=== PATIENT | male | born 1960 | race Caucasian/White ===

== ENCOUNTER 2016-06-26 16:03 | Emergency (ER) | payer OTHER ==
[2016-06-26 16:03] VITALS: BMI 29.2
[2016-06-26 16:20] VITALS: RESP 18
[2016-06-26] MEDS ORDERED: Sodium Chloride 0.9% 1,000 ML IV ONE (17:14)
--- NOTE | 2016-06-26 17:34 | RAD ---
PROCEDURE: CHEST RADIOGRAPH, 1 VIEW HISTORY: abd pain COMPARISON: Comparison chest dated 12/23/2015 FINDINGS: LUNGS: Suspect minor bibasilar atelectasis and or scarring. PLEURA: No pneumothorax or pleural fluid seen. Suspect minimal right apical pleural thickening. CARDIOVASCULAR: Normal. OSSEOUS STRUCTURES: No significant abnormalities. . VISUALIZED UPPER ABDOMEN: No gross free intraperitoneal air seen under the diaphragmatic surfaces. OTHER FINDINGS: None. IMPRESSION: No active disease.
--- NOTE | 2016-06-26 17:43 | C.PDOC ---
History Of Present Illness 55 y/o male presents to the ED complaining of epigastric abdominal pain x 4 days. He also reports some mild nausea and several episodes of non-bloody, non- bilious vomiting. Patient denies diarrhea, fever, changes in appetite, or recent travel. Chief Complaint (Nursing): Abdominal Pain History Per: Patient History/Exam Limitations: no limitations Onset/Duration Of Symptoms: Days (4), Persistent Current Symptoms Are (Timing): Still Present Location Of Pain/Discomfort: Epigastric Radiation Of Pain To:: None Associated Symptoms: Nausea, Vomiting Recent travel outside of the [place]: No Past Medical History Reviewed: Historical Data, Nursing Documentation, Vital Signs Vital Signs: Last Vital Signs Temp 98.3 F 06/26/16 16:16 Pulse 85 06/26/16 16:16 Resp 18 06/26/16 16:16 BP 157/90 H 06/26/16 16:16 Pulse Ox 98 06/26/16 18:21 - Medical History PMH: No Chronic Diseases Surgical History: No Surg Hx - [facility] Procedures DETOXIFICATION SERVICES FOR SUBSTANCE ABUSE TREATMENT (12/23/15) Family History: States: Unknown Family Hx - Social History Hx Tobacco Use: No Hx Alcohol Use: Yes Hx Substance Use: No - Immunization History Hx Tetanus Toxoid Vaccination: No Hx Influenza Vaccination: No Hx Pneumococcal Vaccination: No Review Of Systems Except As Marked, All Systems Reviewed And Found Negative. Constitutional: Negative for: Fever Gastrointestinal: Positive for: Nausea, Vomiting, Abdominal Pain. Negative for : Diarrhea Physical Exam - Physical Exam Appears: Non-toxic, No Acute Distress Skin: Normal Color, Warm, Dry Head: Atraumatic, Normacephalic Eye(s): bilateral: Normal Inspection, PERRL Oral Mucosa: Moist Neck: Normal ROM, Supple Chest: Symmetrical, No Tenderness Cardiovascular: Rhythm Regular Respiratory: Normal Breath Sounds, No Rales, No Rhonchi, No Wheezing Gastrointestinal/Abdominal: Soft, Tenderness (RUQ and epigastric), No Guarding, No Rebound Back: Normal Inspection, No CVA Tenderness Extremity: Normal ROM, No Swelling Neurological/Psych: Oriented x3, Normal Speech, Normal Cognition ED Course And Treatment - Laboratory Results Result Diagrams: 06/26/16 17:45 06/26/16 17:45 ECG: Interpreted By Me ECG Rhythm: Sinus Rhythm Interpretation Of ECG: normal axis, normal intervals Rate From EC (bpm) O2 Sat by Pulse Oximetry: 98 (ra) Pulse Ox Interpretation: Normal - Other Rad Chest X-Ray X-Ray: Viewed By Me, Read By Radiologist (Juan Harris MD) Interpretation: IMPRESSION: No active disease. Medical Decision Making Medical Decision Making: Plan: * Labs * CXR * Ultrasound * Pepcid IVP, Zofran IVP, IV Fluids Disposition - Disposition Referrals: [facility] [Outside] [facility] [Outside] Disposition: HOME/ ROUTINE Disposition Time: 19:00 Condition: IMPROVED Additional Instructions: Thank you for letting us take care of you today. Your provider was Dr. Shah. You were treated for gastritis. The emergency medical care you received today was directed at your acute symptoms. If you were prescribed any medication, please fill it and take as directed. It may take several days for your symptoms to resolve. Return to the Emergency Department if your symptoms worsen, do not improve, or if you have any other problems. Please contact your doctor or call one of the physicians/clinics you have been referred to that are listed on the Patient Visit Information form that is included in your discharge packet. Bring any paperwork you were given at discharge with you along with any medications you are taking to your follow up visit. Our treatment cannot replace ongoing medical care by a primary care provider (PCP) outside of the emergency department. Thank you for allowing the [facility] team to be part of your care today. Follow up with the clinic in 4-5 days for re-evaluation. Prescriptions: Ranitidine HCl [Zantac] 150 mg PO BID #20 tablet - Clinical Impression Clinical Impression: Gastritis - Scribe Statement The provider has reviewed the documentation as recorded by the Scribe (Raquel Bailey) Provider Attestation: All medical record entries made by the Scribe were at my direction and personally dictated by me. I have reviewed the chart and agree that the record accurately reflects my personal performance of the history, physical exam, medical decision making, and the department course for this patient. I have also personally directed, reviewed, and agree with the discharge instructions and disposition.
[2016-06-26] MEDS ORDERED: Sodium Chloride 0.9% 1,000 ML ONE (17:46)
[2016-06-26 17:50] LABS: BASO # 0.1 K/uL (0.0-0.2); BASO % 0.8 % (0.0-2.0); EOS # 0.1 K/uL (0.0-0.7); HEMATOCRIT 43.5 % (35.0-51.0); LYMPH # 1.4 K/uL (1.0-4.3); LYMPH % 19.7 % (20.0-40.0); MEAN CELL VOLUME 97.2 fL (80.0-94.0); MEAN CORPUSCULAR HEMOGLOBIN 33.1 pg (27.0-31.0); MONO # 0.7 K/uL (0.0-0.8); MONO % 9.6 % (0.0-10.0); RED CELL DISTRIBUTION WIDTH 12.5 % (11.5-14.5); WHITE BLOOD COUNT 7.1 K/uL (4.8-10.8)
[2016-06-26 18:14] LABS: CHLORIDE 100 mmol/L (98-107); SODIUM 140 mmol/L (132-148)
[2016-06-26 18:15] LABS: POTASSIUM 3.9 mmol/L (3.6-5.2)
[2016-06-26 18:16] LABS: GFR AFRICAN-AMERICAN > 60
[2016-06-26 18:17] LABS: ALB/GLOB RATIO 1.4 (1.0-2.1); ALKALINE PHOSPHATASE 57 U/L (38-126); ALT/SGPT 26 U/L (21-72); AST/SGOT 44 U/L (17-59); BILIRUBIN,TOTAL 0.9 mg/dL (0.2-1.3); BLOOD UREA NITROGEN 20 mg/dL (9-20); CALCIUM 8.9 mg/dl (8.6-10.4); CARBON DIOXIDE 24 mmol/L (22-30); GLUCOSE,RANDOM 89 mg/dL (75-110); TOTAL PROTEIN 7.5 g/dL (6.3-8.3)
--- NOTE | 2016-06-26 18:54 | US ---
HISTORY: RUQ/epigastric pain/tenderness COMPARISON: None. TECHNIQUE: Sonographic evaluation of the abdomen. FINDINGS: LIVER: Measures 18.5 cm. Diffusely increased echogenicity of the liver parenchyma. Consistent with fatty infiltration. Smooth contour. No mass. No biliary ductal dilatation. GALLBLADDER: Unremarkable. No gallstones. COMMON BILE DUCT: Measures 3 mm. No stones. No dilatation. PANCREAS: Unremarkable as visualized. No mass. No ductal dilatation. RIGHT KIDNEY: Measures 11.8cm. Normal echogenicity. No calculus, mass, or hydronephrosis. LEFT KIDNEY: Measures 12.5cm. Normal echogenicity. No calculus, mass, or hydronephrosis. SPLEEN: Normal in size and contour. No mass. AORTA: No aneurysmal dilatation. IVC: Unremarkable. OTHER FINDINGS: None. IMPRESSION: Mild hepatomegaly with diffuse fatty infiltration. No evidence of cholelithiasis or cholecystitis.
[2016-06-26 19:30] VITALS: BP 148/81; PULSE 73; TEMP 97.8; O2SAT 99
--- NOTE | 2016-07-11 14:41 | CARD ---
APPROVED REPORT EKG Measurement Heart [id number] <Conclusion> Normal sinus rhythm Minimal voltage criteria for LVH, may be normal variant Inferior infarct, age undetermined Abnormal ECG
== END 2016-06-26 19:28 | disposition home or self-care (01) ==
LOC: C.ER 16:03
DX: K29.70 Gastritis, unspecified, without bleeding (principal)
CPT/HCPCS: 71010; 76700; 80053; 83690; 84484; 85025; 96361; 96374; 96375; 99284; J2405; J7040

== ENCOUNTER 2017-05-13 12:58 | Emergency (ER) | payer OTHER ==
[2017-05-13 13:00] VITALS: BMI 29.2
--- NOTE | 2017-05-13 14:28 | C.PDOC ---
History Of Present Illness 56 year old male presents to the ER with a complaint of a sharp right sided pain after lifting a heavy object at work yesterday. Denies nausea, vomiting, or diarrhea. Time Seen by Provider: 05/13/17 13:48 Chief Complaint (Nursing): Abdominal Pain History Per: Patient History/Exam Limitations: no limitations Onset/Duration Of Symptoms: Days Current Symptoms Are (Timing): Still Present Context: Other (Heavy lifting) Location Of Pain/Discomfort: Other (Right sided) Radiation Of Pain To:: None Quality Of Discomfort: Sharp Associated Symptoms: denies: Fever, Chills, Nausea, Vomiting, Diarrhea Alleviating Factors: None Recent travel outside of the [place]: No Past Medical History Reviewed: Historical Data, Nursing Documentation, Vital Signs Vital Signs: Last Vital Signs Temp 97.7 F 05/13/17 13:23 Pulse 82 05/13/17 13:23 Resp 18 05/13/17 13:23 BP 166/90 H 05/13/17 13:23 Pulse Ox 98 05/13/17 14:30 - [facility] Procedures DETOXIFICATION SERVICES FOR SUBSTANCE ABUSE TREATMENT (12/23/15) Family History: States: Unknown Family Hx - Social History Hx Tobacco Use: No Hx Alcohol Use: Yes Hx Substance Use: No - Immunization History Hx Tetanus Toxoid Vaccination: No Hx Influenza Vaccination: No Hx Pneumococcal Vaccination: No Review Of Systems Except As Marked, All Systems Reviewed And Found Negative. Constitutional: Negative for: Fever, Chills Gastrointestinal: Positive for: Other (Right sided). Negative for: Nausea, Vomiting Physical Exam - Physical Exam Additional Physical Exam Comments: Constitutional: No acute distress. Head: Normocephalic. Atraumatic. Eyes: PERRL. ENT: Moist mucous membranes. Neck: Supple. Cardiovascular: Regular rate. Radial pulse 2+ bilaterally. Chest: Right lower thoracic tenderness. Respiratory: Clear to auscultation bilaterally. GI: RUQ tenderness. Back: No CVA tenderness. Musculoskeletal: No tenderness or swelling of extremities. Skin: No rash. Neurologic: Alert, no focal deficit. ED Course And Treatment O2 Sat by Pulse Oximetry: 98 (Room air) Pulse Ox Interpretation: Normal Medical Decision Making Medical Decision Making: Toradol for pain. CXR no acute disease. I informed patient that his symptoms are consistent with strain from lifting heavy object but also overlying area of gall bladder so should he have fever, vomiting, yellowing of skin or eyes, or any other concern, to return to ED for imaging. Disposition - Disposition Disposition: HOME/ ROUTINE Disposition Time: 15:55 Condition: STABLE Prescriptions: Famotidine [Pepcid] 1 tab PO BID #14 tab Ibuprofen [Motrin] 600 mg PO Q6 #25 tab Instructions: Muscle Strain Forms: [employer] (Khmer) - Clinical Impression Clinical Impression: Strain of thoracic region - Scribe Statement The provider has reviewed the documentation as recorded by the Scribmile Kline All medical record entries made by the Davyibmile were at my direction and personally dictated by me. I have reviewed the chart and agree that the record accurately reflects my personal performance of the history, physical exam, medical decision making, and the department course for this patient. I have also personally directed, reviewed, and agree with the discharge instructions and disposition.
--- NOTE | 2017-05-13 15:38 | RAD ---
HISTORY: R sided thoracic pain COMPARISON: Chest x-ray performed 06/26/16 TECHNIQUE: Chest PA and lateral FINDINGS: Examination limited by habitus. LUNGS: No focal consolidation. Please note that chest x-ray has limited sensitivity for the detection of pulmonary masses. PLEURA: No significant pleural effusion identified. No definite pneumothorax . CARDIOVASCULAR: The cardiomediastinal silhouette appears within normal limits of size. OSSEOUS STRUCTURES: No acute osseous abnormality identified. VISUALIZED UPPER ABDOMEN: Unremarkable. OTHER FINDINGS: None. IMPRESSION: No focal consolidation, significant pleural effusion, or definite pneumothorax identified.
[2017-05-13 16:11] VITALS: BP 153/80; PULSE 73; RESP 20; TEMP 97.8; O2SAT 100
== END 2017-05-13 16:11 | disposition home or self-care (01) ==
LOC: C.ER 12:58
DX: S29.019A Strain of muscle and tendon of unspecified wall of thorax, initial encounter (principal); X50.0XXA Overexertion from strenuous movement or load, initial encounter; Y99.0 Civilian activity done for income or pay
CPT/HCPCS: 71046; 96372; 99284; J1885

== ENCOUNTER 2017-05-20 11:04 | Emergency (ER) | payer OTHER ==
[2017-05-20 11:05] VITALS: BMI 29.2
[2017-05-20 11:22] VITALS: O2SAT 98
[2017-05-20] MEDS ORDERED: Sodium Chloride 0.9% 1,000 ML IV ONE (12:20)
--- NOTE | 2017-05-20 12:21 | C.PDOC ---
History Of Present Illness 56 yr old male presents to the ER with complaints of abdominal pain and nausea for the past 1 week. Patient states he vomited last night around 5-6 times. Patient also reports of feeling dizzy, cough with yellow phlegm and chest pain with cough. Patient states he has nausea after eating and mild pain with urination. Patient denies fever, chills, SOB, diarrhea, hematuria, weakness or numbness. Time Seen by Provider: 05/20/17 11:41 Chief Complaint (Nursing): Abdominal Pain History Per: Patient History/Exam Limitations: no limitations Onset/Duration Of Symptoms: Days (1 week) Current Symptoms Are (Timing): Still Present Past Medical History Reviewed: Historical Data, Nursing Documentation, Vital Signs Vital Signs: Last Vital Signs Temp 98.0 F 05/20/17 15:36 Pulse 78 05/20/17 15:36 Resp 18 05/20/17 15:36 BP 145/77 05/20/17 15:36 Pulse Ox 98 05/20/17 15:36 - [employer] [facility] Procedures DETOXIFICATION SERVICES FOR SUBSTANCE ABUSE TREATMENT (12/23/15) Family History: States: No Known Family Hx - Social History Hx Tobacco Use: No Hx Alcohol Use: Yes Hx Substance Use: No - Immunization History Hx Tetanus Toxoid Vaccination: No Hx Influenza Vaccination: No Hx Pneumococcal Vaccination: No Review Of Systems Except As Marked, All Systems Reviewed And Found Negative. Constitutional: Negative for: Fever, Chills Cardiovascular: Positive for: Chest Pain (with cough) Respiratory: Positive for: Cough (with yellow phlegm). Negative for: Shortness of Breath Gastrointestinal: Positive for: Nausea, Vomiting, Abdominal Pain. Negative for : Diarrhea Genitourinary: Positive for: Dysuria. Negative for: Hematuria Neurological: Negative for: Weakness, Numbness Physical Exam - Physical Exam Appears: Non-toxic, No Acute Distress Skin: Warm, Dry, No Rash Eye(s): bilateral: Normal Inspection, PERRL, EOMI Oral Mucosa: Moist Throat: Normal, No Erythema, No Exudate Neck: Normal, Normal ROM, Supple Cardiovascular: Rhythm Regular, No Murmur Respiratory: Normal Breath Sounds, No Rales, No Rhonchi, No Stridor, No Wheezing Gastrointestinal/Abdominal: Soft, Tenderness (RUQ), No Guarding, No Rebound Back: CVA Tenderness (right) Extremity: Normal ROM, No Swelling Neurological/Psych: Oriented x3, Normal Speech ED Course And Treatment - Laboratory Results Result Diagrams: 05/20/17 12:27 05/20/17 12:27 O2 Sat by Pulse Oximetry: 98 (RA) Pulse Ox Interpretation: Normal - CT Scan/US CT - Abd & Pelvis Other Rad Studies (CT/US): Read By Radiologist, Radiology Report Reviewed CT/US Interpretation: PROCEDURE: CT Abdomen and Pelvis without Oral or IV contrast. HISTORY: abd pain. COMPARISON: Abdominal ultrasound performed , CT abdomen and pelvis with contrast performed 10/27/14. TECHNIQUE: Contiguous axial images of the abdomen and pelvis. No oral or IV contrast administered. Coronal and Sagittal reformats generated. Radiation dose: Total exam DLP = 372.44 mGy-cm. This CT exam was performed using one or more of the following dose reduction techniques: Automated exposure control, adjustment of the mA and/or kV according to patient size, and/or use of iterative reconstruction technique. FINDINGS: There is limited evaluation of the solid organs without the administration of IV contrast. LOWER THORAX: No visible consolidation, pleural effusion, or pneumothorax. Small hiatal hernia/distal esophageal wall thickening. LIVER: Hypoattenuation of the liver compatible with hepatic steatosis. Too small to characterize 8 mm hepatic hypodensity ; statistically likely a cyst or hemangioma. GALLBLADDER AND BILE DUCTS: Unremarkable unenhanced appearance. PANCREAS: Unremarkable unenhanced appearance. SPLEEN: 11 mm probable splenule. Otherwise unremarkable unenhanced appearance. ADRENALS: Unremarkable unenhanced appearance. KIDNEYS AND URETERS: No hydronephrosis or obstructing renal calculus. 1 mm nonobstructing left upper pole renal calculus. BLADDER: Under distention of the urinary bladder, otherwise unremarkable. REPRODUCTIVE: The prostate gland measures approximately 3.4 x 4.7 cm. APPENDIX: The appendix appears within normal limits of caliber. No secondary signs of acute appendicitis. BOWEL: The stomach is nondistended. Lack of oral contrast limits evaluation for bowel pathology. The bowel loops appear within normal limits of caliber without evidence of intestinal obstruction. Diverticulosis without CT evidence of acute diverticulitis. Moderate constipation. PERITONEUM: No significant free fluid. No definite free air. LYMPH NODES: No bulky lymphadenopathy identified. VASCULATURE: No aortic aneurysm. BONES: Mild degenerative changes. OTHER FINDINGS: None. IMPRESSION: Diverticulosis without CT evidence of acute diverticulitis. Moderate constipation. 8 mm too small to characterize hepatic hypodensities; statistically likely cyst or hemangioma. Hypoattenuation of the liver compatible with hepatic steatosis. 1 mm nonobstructing left upper pole renal calculus. No hydronephrosis or obstructing calculus identified. Additional findings as above. Progress Note: On reevaluation, patient reports improvement of symptoms. CAT scan reveals constipation. Patient is dischagred home and advised to follow up at the clinic in 2 days. Medical Decision Making Medical Decision Making: IMPRESSION: Abdominal pain PLAN: * CT - Abd & Pelvis * Labs * Urinalysis * Pepcid IVP * Toradol IVP * Zofran IVP * Sodium Chloride IV * * On reevaluation, patient states improvement, discussed results with patient and will discharge home to follow up with pmd in 2 days. Disposition Counseled Patient/Family Regarding: Studies Performed, Diagnosis, Need For Followup, Rx Given - Disposition Referrals: [facility] at [facility] [Outside] Disposition: HOME/ ROUTINE Disposition Time: 15:08 Condition: STABLE Additional Instructions: follow up with your doctor in 2 days call to make an appointment take medications as prescribed return to ER if symptoms worsens or progress Prescriptions: Famotidine [Pepcid] 20 mg PO BID #20 tab Naproxen [Naprosyn] 500 mg PO BID PRN #16 tab PRN Reason: Pain, Moderate (4-7) Polyethylene Glycol 3350 [Miralax] 17 gm PO DAILY PRN #12 packet PRN Reason: Constipation Instructions: Constipation in Adults Forms: Gen Discharge Inst Panamanian, [employer] (Panamanian) Print Language: SERBIAN - Clinical Impression Clinical Impression: Constipation - Scribe Statement The provider has reviewed the documentation as recorded by the Maurice Lau Provider Attestation: All medical record entries made by the Maurice were at my direction and personally dictated by me. I have reviewed the chart and agree that the record accurately reflects my personal performance of the history, physical exam, medical decision making, and the department course for this patient. I have also personally directed, reviewed, and agree with the discharge instructions and disposition.
[2017-05-20 12:38] LABS: BASO # 0.1 K/uL (0.0-0.2); BASO % 0.7 % (0.0-2.0); EOS # 0.1 K/uL (0.0-0.7); EOS % 0.6 % (0.0-4.0); HEMOGLOBIN 15.2 g/dL (12.0-18.0); LYMPH # 1.2 K/uL (1.0-4.3); MEAN CELL VOLUME 98.2 fL (80.0-94.0); MEAN CORPUSCULAR HGB CONC 35.6 g/dL (33.0-37.0); MEAN PLATELET VOLUME 9.4 fL (7.2-11.7); MONO # 0.8 K/uL (0.0-0.8); MONO % 7.9 % (0.0-10.0); NEUT # 8.1 K/uL (1.8-7.0); NEUT % 78.8 % (50.0-75.0); RBC 4.35 Mil/uL (4.40-5.90); RED CELL DISTRIBUTION WIDTH 12.8 % (11.5-14.5); WHITE BLOOD COUNT 10.3 K/uL (4.8-10.8)
[2017-05-20 12:49] LABS: SQUAMOUS EPITHIAL 1 /hpf (0-5); URINE BACTERIA RARE (<OCC); URINE BILIRUBIN NEGATIVE (NEGATIVE); URINE BLOOD 1+ (NEGATIVE); URINE CLARITY Clear (Clear); URINE COLOR Yellow (YELLOW); URINE GLUCOSE (UA) NORMAL (Normal); URINE LEUKOCYTE ESTERASE NEG Leu/uL (Negative); URINE NITRATE NEGATIVE (NEGATIVE); URINE PROTEIN NEGATIVE (NEGATIVE)
[2017-05-20] MEDS ORDERED: Sodium Chloride 0.9% 1,000 ML ONE (12:56)
[2017-05-20 12:57] LABS: ALB/GLOB RATIO 1.2 (1.0-2.1); ALBUMIN 4.1 g/dL (3.5-5.0); ALT/SGPT 27 U/L (21-72); AST/SGOT 43 U/L (17-59); BLOOD UREA NITROGEN 11 mg/dL (9-20); CALCIUM 8.6 mg/dl (8.6-10.4); GFR AFRICAN-AMERICAN > 60; GFR NON-AFRICAN AMERICAN > 60; LIPASE 115 U/L (23-300)
--- NOTE | 2017-05-20 14:08 | CT ---
PROCEDURE: CT Abdomen and Pelvis without Oral or IV contrast. HISTORY: abd pain COMPARISON: Abdominal ultrasound performed 06/26/16, CT abdomen and pelvis with contrast performed 10/27/14 TECHNIQUE: Contiguous axial images of the abdomen and pelvis. No oral or IV contrast administered. Coronal and Sagittal reformats generated. Radiation dose: Total exam DLP = 372.44 mGy-cm. This CT exam was performed using one or more of the following dose reduction techniques: Automated exposure control, adjustment of the mA and/or kV according to patient size, and/or use of iterative reconstruction technique. FINDINGS: There is limited evaluation of the solid organs without the administration of IV contrast. LOWER THORAX: No visible consolidation, pleural effusion, or pneumothorax. Small hiatal hernia/distal esophageal wall thickening. LIVER: Hypoattenuation of the liver compatible with hepatic steatosis. Too small to characterize 8 mm hepatic hypodensity ; statistically likely a cyst or hemangioma. GALLBLADDER AND BILE DUCTS: Unremarkable unenhanced appearance. PANCREAS: Unremarkable unenhanced appearance. SPLEEN: 11 mm probable splenule. Otherwise unremarkable unenhanced appearance. ADRENALS: Unremarkable unenhanced appearance. KIDNEYS AND URETERS: No hydronephrosis or obstructing renal calculus. 1 mm nonobstructing left upper pole renal calculus. BLADDER: Under distention of the urinary bladder, otherwise unremarkable. REPRODUCTIVE: The prostate gland measures approximately 3.4 x 4.7 cm. APPENDIX: The appendix appears within normal limits of caliber. No secondary signs of acute appendicitis. BOWEL: The stomach is nondistended. Lack of oral contrast limits evaluation for bowel pathology. The bowel loops appear within normal limits of caliber without evidence of intestinal obstruction. Diverticulosis without CT evidence of acute diverticulitis. Moderate constipation. PERITONEUM: No significant free fluid. No definite free air. LYMPH NODES: No bulky lymphadenopathy identified. VASCULATURE: No aortic aneurysm. BONES: Mild degenerative changes. OTHER FINDINGS: None. IMPRESSION: Diverticulosis without CT evidence of acute diverticulitis. Moderate constipation. 8 mm too small to characterize hepatic hypodensities; statistically likely cyst or hemangioma. Hypoattenuation of the liver compatible with hepatic steatosis. 1 mm nonobstructing left upper pole renal calculus. No hydronephrosis or obstructing calculus identified. Additional findings as above.
[2017-05-20 15:38] VITALS: BP 145/77; PULSE 78; RESP 18; TEMP 98
== END 2017-05-20 16:15 | disposition home or self-care (01) ==
LOC: C.ER 11:04
DX: K59.00 Constipation, unspecified (principal)
CPT/HCPCS: 74176; 80053; 81001; 83690; 84484; 85025; 96361; 96374; 96375; 99285; J1885; J2405; J7040

== ENCOUNTER 2017-09-30 05:53 | Emergency (ER) | payer SELFPAY ==
[2017-09-30 05:54] VITALS: BMI 29.2
[2017-09-30 06:05] VITALS: BP 159/92; PULSE 91; RESP 20; TEMP 98; O2SAT 98
[2017-09-30] MEDS ORDERED: Silver Sulfadiazine 1% Cream (20 gm) ONE (06:28)
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
[2017-09-30] MEDS ORDERED: Silver Sulfadiazine 1% Cream (20 gm) TOP STA (06:33)
== END 2017-09-30 07:19 | disposition home or self-care (01) ==
LOC: C.ER 05:53
DX: T24.212A Burn of second degree of left thigh, initial encounter (principal); T23.202A Burn of second degree of left hand, unspecified site, initial encounter; T20.16XA Burn of first degree of forehead and cheek, initial encounter; T22.152A Burn of first degree of left shoulder, initial encounter; X10.2XXA Contact with fats and cooking oils, initial encounter; Y93.G3 Activity, cooking and baking

== ENCOUNTER 2017-10-01 14:18 | Emergency (ER) | payer OTHER ==
[2017-10-01 14:18] VITALS: BMI 29.2
[2017-10-01 14:26] VITALS: BP 156/92; PULSE 102; RESP 19; TEMP 97.8; O2SAT 100
[2017-10-01] MEDS ORDERED: Silver Sulfadiazine 1% Cream (20 gm) ONE (15:00)
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
== END 2017-10-01 15:12 | disposition home or self-care (01) ==
LOC: C.ER 14:18
DX: T24.212D Burn of second degree of left thigh, subsequent encounter (principal); T20.26XD Burn of second degree of forehead and cheek, subsequent encounter; X10.1XXD Contact with hot food, subsequent encounter

== ENCOUNTER 2018-01-17 15:30 | Emergency (ER) | payer OTHER ==
[2018-01-17 15:37] VITALS: BMI 27.3
[2018-01-17] MEDS ORDERED: Sodium Chloride 0.9% 1,000 ML IV STA (16:25)
[2018-01-17] MEDS ORDERED: Sodium Chloride 0.9% 1,000 ML ONE (16:44)
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
[2018-01-17 16:51] LABS: BASO % 0.9 % (0.0-2.0); EOS % 0.9 % (0.0-4.0); HEMOGLOBIN 16.2 g/dL (12.0-18.0); LYMPH % 42.3 % (20.0-40.0); MEAN CELL VOLUME 99.4 fL (80.0-94.0); MEAN CORPUSCULAR HEMOGLOBIN 34.6 pg (27.0-31.0); MEAN CORPUSCULAR HGB CONC 34.8 g/dL (33.0-37.0); MEAN PLATELET VOLUME 8.6 fL (7.2-11.7); MONO # 0.4 K/uL (0.0-0.8); MONO % 8.1 % (0.0-10.0); NEUT # 2.2 K/uL (1.8-7.0); NEUT % 47.8 % (50.0-75.0); NRBC % 0.1 % (0.0-2.0); RBC 4.68 Mil/uL (4.40-5.90); RED CELL DISTRIBUTION WIDTH 12.9 % (11.5-14.5); WHITE BLOOD COUNT 4.7 K/uL (4.8-10.8)
[2018-01-17 16:58] LABS: ALB/GLOB RATIO 1.3 (1.0-2.1); ALBUMIN 4.3 g/dL (3.5-5.0); ALT/SGPT 38 U/L (21-72); AST/SGOT 92 U/L (17-59); BLOOD UREA NITROGEN 9 mg/dL (9-20); CALCIUM 8.5 mg/dl (8.6-10.4); GFR NON-AFRICAN AMERICAN > 60; LIPASE 271 U/L (23-300)
[2018-01-17 17:18] LABS: SQUAMOUS EPITHIAL 2 /hpf (0-5); URINE BACTERIA RARE (<OCC); URINE BILIRUBIN NEGATIVE (NEGATIVE); URINE BLOOD NEGATIVE (NEGATIVE); URINE CLARITY Hazy (Clear); URINE COLOR Yellow (YELLOW); URINE GLUCOSE (UA) NORMAL (Normal); URINE LEUKOCYTE ESTERASE NEG Leu/uL (Negative); URINE PROTEIN NEGATIVE (NEGATIVE)
--- NOTE | 2018-01-17 17:28 | US ---
Date of service: 01/17/2018 HISTORY: abd pain RUQ COMPARISON: None. TECHNIQUE: Sonographic evaluation of the right upper quadrant of the abdomen. FINDINGS: LIVER: Measures 16.8 cm in length. Increased echogenicity of the liver parenchyma. Right hepatic lobe cyst measuring 1.2 x 1.0 x 1.1 cm. No mass. No intrahepatic bile duct dilatation. GALLBLADDER: Unremarkable. No gallstones. COMMON BILE DUCT: Measures 3 mm. No stones. No dilatation. PANCREAS: Unremarkable as visualized. No mass. No ductal dilatation. RIGHT KIDNEY: Measures 10.8 x 5.2 x 5.3 cm in length. Normal echogenicity. No calculus, mass, or hydronephrosis. AORTA: No aneurysmal dilatation. IVC: Unremarkable. OTHER FINDINGS: None . IMPRESSION: Hepatic steatosis. No evidence of cholelithiasis.
[2018-01-17 18:20] VITALS: BP 163/87; PULSE 87; RESP 17; TEMP 98.6
[2018-01-17 18:28] VITALS: O2SAT 97
--- NOTE | 2018-01-19 11:38 | CARD ---
APPROVED REPORT Date of service: 01/17/2018 EKG Measurement Heart [id number] <Conclusion> Sinus tachycardia Possible Inferior infarct, age undetermined Abnormal ECG
== END 2018-01-17 18:39 | disposition home or self-care (01) ==
LOC: C.ER 15:30
DX: K29.70 Gastritis, unspecified, without bleeding (principal)
CPT/HCPCS: 76705; 80053; 81001; 83690; 85025; 96361; 96374; 96375; 99285; C9113; J2405; J7030